=== PATIENT | female | born 1975 | race Caucasian/White ===

== ENCOUNTER → 2017-09-27 | Emergency (ER) | payer OTHER ==
[~2017-09-27] VITALS: Ht 165.1 cm; Wt 74.4 kg
[~2017-09-27] MED LIST: COZAAR100 MG; HYDROCHLOROTHIA25 MG; IBUPROFEN800 MG PO; KETO10TA2 PO; NORFLEX100MG PO; SYNTHROID50 MCG; ZITHROMAX500 MG PO
== END | disposition home or self-care (01) ==
LOC: ER 12:15
DX: J03.90 Acute tonsillitis, unspecified (principal)